=== PATIENT | male | born 2000 | race Two or more races ===

== ENCOUNTER 2025-05-13 08:21 | Emergency (ER) | payer SELFPAY ==
[2025-05-13] MEDS: Fluorescein 1 MG Ophth Strip EYERT ONE (08:53)
[2025-05-13] MEDS: Tetracaine HCl/PF 0.5% 4 ML Bottle EYERT ONE (08:54)
== END 2025-05-13 09:02 | disposition home or self-care (01) ==
LOC: VM.ED 08:21
DX: S05.01XA Injury of conjunctiva and corneal abrasion without foreign body, right eye, initial encounter (principal); X58.XXXA Exposure to other specified factors, initial encounter
CPT/HCPCS: 99283; J3490